=== PATIENT | male | born 1935 | race Asian ===

== ENCOUNTER 2017-08-14 15:52 | Inpatient (IN) | payer MEDICARE, OTHER ==
[~2017-08-14] VITALS: Ht 154.9 cm; Wt 79.8 kg
--- NOTE | 2017-08-14 15:52 | NUR ---
BIB FAMILY FOR [facility]YCH ADMISSION,INCREASING AGITATION/AGGRESSION TOWARDS STAFF/ROOMMATE X 1 WEEK
[2017-08-14 16:37] LABS: BASOPHILS # (AUTO) 0.1 /CMM (0.0-0.2); BASOPHILS % (AUTO) 0.7 % (0.0-2.0); EOSINOPHILS # (AUTO) 0.3 /CMM (0.0-0.7); EOSINOPHILS % (AUTO) 3.5 % (0.0-6.0); HEMATOCRIT 40 % (39-51); HEMOGLOBIN 12.8 g/dL (13.5-17.5); LYMPHOCYTES # (AUTO) 1.2 /CMM (0.8-4.8); LYMPHOCYTES % (AUTO) 16.5 % (20.0-44.0); MEAN CORPUSCULAR HEMOGLOBIN 27 PG (26.0-33.0); MEAN CORPUSCULAR HGB CONC 32 g/dl (31.0-36.0); MEAN CORPUSCULAR VOLUME 84 fL (80-96); MONOCYTES # (AUTO) 0.6 /CMM (0.1-1.30); MONOCYTES % (AUTO) 8.3 % (2.0-12.0); NEUTROPHILS # (AUTO) 5.4 /CMM (1.8-8.9); PLATELET COUNT (AUTO) 171 /CMM (150-450); RDW COEFFICIENT OF VARIATION 14.9 (11.5-15.0); RED BLOOD CELL COUNT(AUTO) 4.74 MIL/uL (4.5-6.0); WHITE BLOOD COUNT (AUTO) 7.6 K/uL (4.3-11.0)
--- NOTE | 2017-08-14 16:40 | NUR ---
URINE OBTAINED AND SENT TO LAB.
--- NOTE | 2017-08-14 16:47 | NUR ---
PT BACK FROM CT
[2017-08-14 16:58] LABS: CALCIUM, SERUM 9.3 mg/dL (8.5-10.1); CARBON DIOXIDE 30 mmol/L (21-32); CHLORIDE 109 mmol/L (98-107); GLUCOSE 92 mg/dL (74-106); POTASSIUM 4.2 mmol/L (3.5-5.1); SODIUM SERUM 145 mmol/L (136-145); UREA NITROGEN, BLOOD 23 mg/dL (7-18)
[2017-08-14 17:09] LABS: ACETAMINOPHEN < 2 ug/ml (10-30); ALANINE AMINOTRANSFERASE 27 U/L (12-78); ALBUMIN 3.5 g/dL (3.4-5.0); ALCOHOL, BLOOD < 3 mg/dL (0-0); ALKALINE PHOSPHATASE 75 U/L (46-116); ASPARTATE AMINOTRANSFERASE 34 U/L (15-37); BILIRUBIN,DIRECT 0.1 mg/dL (0.0-0.2); BILIRUBIN,TOTAL 0.3 mg/dL (0.2-1.0); SALICYLATE 0.7 mg/dL (2.8-20.0); TOTAL PROTEIN, SERUM 7.3 g/dL (6.4-8.2)
[2017-08-14 17:14] LABS: APPEARANCE,URINE Clear (CLEAR); BILIRUBIN,URINE Negative (NEGATIVE); BLOOD, URINE Negative Ery/uL (NEGATIVE); COLOR,URINE Yellow (YELLOW); KETONES,URINE Negative (NEGATIVE); LEUKOCYTE ESTERASE ,URINE Negative (NEGATIVE); NITRITE, URINE Negative (NEGATIVE); PH,URINE 5.5 (5.0-8.0); PROTEIN,URINE Negative (NEGATIVE); UGLUCOSE Negative (NEGATIVE); UROBILINOGEN,URINE 0.2 EU/dL (0.2)
--- NOTE | 2017-08-14 17:18 | NUR ---
PAULINA WILL BE HERE AT 1800 FOR PSYCH EVAL
--- NOTE | 2017-08-14 17:30 | NUR ---
PATIENT ASSIGNED TO [id number]
[2017-08-14] MEDS ORDERED: LORA0.5T PO (17:57)
[2017-08-14] MEDS ORDERED: DONE5TAB34 PO (17:57)
[2017-08-14] MEDS ORDERED: DIVA250T47 PO (17:57)
[2017-08-14] MEDS ORDERED: ALLO300T2 PO (17:57)
[2017-08-14] MEDS ORDERED: COLC0.6C3 PO (17:57)
[2017-08-14] MEDS ORDERED: METO-302 PO (17:57)
[2017-08-14] MEDS ORDERED: DOCU-270 PO (17:57)
[2017-08-14] MEDS ORDERED: MAG30ORA PO (17:57)
[2017-08-14] MEDS ORDERED: ASEN5TAB7 SL (17:57)
[2017-08-14] MEDS ORDERED: TEMA30CA PO (17:57)
[2017-08-14] MEDS ORDERED: TAMS-12 PO (17:57)
[2017-08-14] MEDS ORDERED: SENN1TAB9 PO (17:57)
[2017-08-14] MEDS ORDERED: ACET325T80 PO (17:57)
[2017-08-14] MEDS ORDERED: BENZ0.5T3 PO (17:57)
--- NOTE | 2017-08-14 18:00 | NUR ---
SENIOR ANIMAL TRAINER, PINKY AT BEDSIDE FOR EVAL
--- NOTE | 2017-08-14 18:31 | NUR ---
REPORT GIVEN TO AARON HERNANDEZ FOR ADMISSION TO GPS.
--- NOTE | 2017-08-14 18:38 | NUR ---
PATIENT TRANSPORTED TO [facility] VIA STRETCHER WITH EMT. RNAARON TO PROVIDE SHOAIB.
[2017-08-14] MEDS ORDERED: MAGNESIUM HYDROXIDE 30 ML UDC PO PRN (20:00)
[2017-08-14] MEDS ORDERED: MAG HYDROX/AL HYDROX/SIMETH 30 ML UDC PO PRN ×2 (20:00→21:00)
[2017-08-14] MEDS ORDERED: ACETAMINOPHEN 325 MG TABLET PO PRN (21:00)
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
[2017-08-14] MEDS: TAMSULOSIN 0.4 MG CAP.SR.24H PO SCH (22:13)
[2017-08-14] MEDS: LORAZEPAM 0.5 MG TABLET PO PRN (22:13)
[2017-08-14] MEDS: SENNOSIDES/DOCUSATE SODIUM 1 TAB TABLET PO SCH (22:13)
[2017-08-15 00:33] VITALS: BP 147/82
[2017-08-15 07:19] LABS: BASOPHILS % (AUTO) 0.3 % (0.0-2.0); EOSINOPHILS # (AUTO) 0.2 /CMM (0.0-0.7); EOSINOPHILS % (AUTO) 2.3 % (0.0-6.0); HEMATOCRIT 42 % (39-51); HEMOGLOBIN 13.4 g/dL (13.5-17.5); LYMPHOCYTES # (AUTO) 1.3 /CMM (0.8-4.8); LYMPHOCYTES % (AUTO) 14.8 % (20.0-44.0); MEAN CORPUSCULAR HEMOGLOBIN 28 PG (26.0-33.0); MEAN CORPUSCULAR HGB CONC 32 g/dl (31.0-36.0); MEAN CORPUSCULAR VOLUME 85 fL (80-96); MONOCYTES # (AUTO) 0.8 /CMM (0.1-1.30); MONOCYTES % (AUTO) 8.7 % (2.0-12.0); NEUTROPHILS # (AUTO) 6.7 /CMM (1.8-8.9); NEUTROPHILS % (AUTO) 73.9 % (43.0-81.0); PLATELET COUNT (AUTO) 163 /CMM (150-450); RDW COEFFICIENT OF VARIATION 15.3 (11.5-15.0); RED BLOOD CELL COUNT(AUTO) 4.88 MIL/uL (4.5-6.0)
[2017-08-15 07:41] LABS: CHOLESTEROL 174 mg/dL (<200); HDL CHOLESTEROL 57 mg/dL (40-60); LDL 106 mg/dL (0-99); TRIGLYCERIDES 76 mg/dL (30-150)
[2017-08-15 07:48] LABS: ALANINE AMINOTRANSFERASE 30 U/L (12-78); ALBUMIN 3.8 g/dL (3.4-5.0); ALKALINE PHOSPHATASE 68 U/L (46-116); ASPARTATE AMINOTRANSFERASE 32 U/L (15-37); BILIRUBIN,TOTAL 0.6 mg/dL (0.2-1.0); CALCIUM, SERUM 10.2 mg/dL (8.5-10.1); CARBON DIOXIDE 26 mmol/L (21-32); CHLORIDE 106 mmol/L (98-107); CREATININE 0.9 mg/dL (0.6-1.3); GLUCOSE 104 mg/dL (74-106); POTASSIUM 3.7 mmol/L (3.5-5.1); SODIUM SERUM 143 mmol/L (136-145); TOTAL PROTEIN, SERUM 7.9 g/dL (6.4-8.2); UREA NITROGEN, BLOOD 20 mg/dL (7-18)
[2017-08-15 08:00] VITALS: BP 137/82
[2017-08-15] MEDS: ALLOPURINOL 100 MG TABLET PO SCH (10:22)
[2017-08-15] MEDS: DONEPEZIL 5 MG TABLET PO SCH (10:23)
[2017-08-15] MEDS: Z GUARD REMEDY 2 OZ OINT TP SCH (10:23)
[2017-08-15] MEDS: DOCUSATE SODIUM 100 MG CAPSULE PO SCH ×2 (10:23→17:47)
[2017-08-15] MEDS: METOPROLOL SUCCINATE 25 MG TAB.SR.24H PO SCH (10:23)
[2017-08-15] MEDS: COLCHICINE 0.6 MG TABLET PO SCH ×2 (10:23→10:30)
[2017-08-15 16:00] VITALS: BP 120/79
[2017-08-15 20:00] VITALS: BP 137/92
[2017-08-15] MEDS ORDERED: DIVALPROEX SODIUM 250 MG TABLET.DR PO ONE (21:14)
[2017-08-15] MEDS: SENNOSIDES/DOCUSATE SODIUM 1 TAB TABLET PO SCH (21:26)
[2017-08-15] MEDS: TAMSULOSIN 0.4 MG CAP.SR.24H PO SCH (21:26)
[2017-08-15] MEDS: DIVALPROEX SODIUM 250 MG TABLET.DR PO SCH (21:26)
[2017-08-15] MEDS ORDERED: QUETIAPINE FUMARATE 25 MG TABLET PO SCH (22:00)
[2017-08-16 08:00] VITALS: BP 113/68
[2017-08-16] MEDS: DOCUSATE SODIUM 100 MG CAPSULE PO SCH ×2 (08:28→16:29)
[2017-08-16] MEDS: DONEPEZIL 5 MG TABLET PO SCH (08:28)
[2017-08-16] MEDS: COLCHICINE 0.6 MG TABLET PO SCH (08:29)
[2017-08-16] MEDS: METOPROLOL SUCCINATE 25 MG TAB.SR.24H PO SCH (08:30)
[2017-08-16] MEDS: ALLOPURINOL 100 MG TABLET PO SCH (08:30)
[2017-08-16] MEDS: Z GUARD REMEDY 2 OZ OINT TP SCH (08:31)
[2017-08-16] MEDS: DIVALPROEX SODIUM 250 MG TABLET.DR PO SCH ×2 (08:43→21:22)
[2017-08-16 16:00] VITALS: BP 103/66
[2017-08-16] MEDS: TAMSULOSIN 0.4 MG CAP.SR.24H PO SCH (21:22)
[2017-08-16] MEDS: SENNOSIDES/DOCUSATE SODIUM 1 TAB TABLET PO SCH (21:22)
[2017-08-16] MEDS: ARIPIPRAZOLE 5 MG TABLET PO SCH (21:22)
[2017-08-16 22:55] VITALS: BP 132/91
[2017-08-17 08:00] VITALS: BP 160/92
[2017-08-17] MEDS: DOCUSATE SODIUM 100 MG CAPSULE PO SCH ×2 (08:39→16:28)
[2017-08-17] MEDS: DIVALPROEX SODIUM 250 MG TABLET.DR PO SCH ×2 (08:39→22:01)
[2017-08-17] MEDS: DONEPEZIL 5 MG TABLET PO SCH (08:39)
[2017-08-17] MEDS: ALLOPURINOL 100 MG TABLET PO SCH (08:39)
[2017-08-17] MEDS: COLCHICINE 0.6 MG TABLET PO SCH (08:39)
[2017-08-17] MEDS: Z GUARD REMEDY 2 OZ OINT TP SCH (08:40)
[2017-08-17] MEDS: METOPROLOL SUCCINATE 25 MG TAB.SR.24H PO SCH (08:40)
--- NOTE | 2017-08-17 09:12 | NUR ---
GPS RN NOTES ASSISTED PATIENT BACK TO BED FROM SAFETY CHAIR
[2017-08-17 16:00] VITALS: BP 110/70
[2017-08-17 16:20] VITALS: BP 110/70
[2017-08-17 16:21] VITALS: BP_SYST 110; BP_SYST 129; BP_DIAS 56; BP_DIAS 70
--- NOTE | 2017-08-17 16:27 | NUR ---
Initial Discharge Note Patient lives at an [facility] [address] [place] [address] [place], [place] [address] and wishes to continue after discharge. SW contacted pt's daughter, Karina at [phone] and Karina stated that she would like her father to continue at [facility]. She stated that [facility] informed her that they would transfer patient to a private room when available. SW called [facility] and spoke to the 3yy game platform. SW was informed that an assessment would be conducted prior to accepting patient back. SW will follow up and schedule that assessment. SW will work to arrange safe and proper discharge and will provide resources for substance use centers.
--- NOTE | 2017-08-17 19:30 | NUR ---
GPS RN NOTE, RECEIVED PATIENT AWAKE AND IN BED NO S/S OR COMPLAINTS OF PAIN AT THIS TIME. PATIENT IS DISPLAYING NO S/S OF APPARENT DISTRESS AT THIS TIME. PATIENT BREATHING IS UNLABORED WITH EQUAL RISE AND FALL OF THE CHEST. PATIENT IS ALERT AND ORIENTED X1 ON ROOM AIR WITH A SPOO2 99 %. PATIENT IS MED COMPLIANT, CONFUSED, ANXIOUS, DISORGANIZED, AND NEEDS REORIENTATION. PATIENT DENIES SUICIDE IDEATIONS AND HOMICIDAL IDEATIONS AT THIS TIME. PATIENT ASSISTED WITH TURNING AND REPOSITIONING Q2HR AND PRN FOR COMFORT AND CIRCULATION. PATIENT HAS NO NEEDS AT THIS TIME. PATIENT EDUCATED ON THE USE OF THE CALL KINGSLEY. PATIENT BED SIDE RAILS UP X 2 FOR SAFETY. PATIENT BED IS LOCKED AND LOW WILL CONTINUE TO MONITOR AND MAINTAIN SAFETY Q15 MIN WITH THE HELP OF STAFF.
[2017-08-17 20:05] VITALS: BP 128/69
[2017-08-17] MEDS: TAMSULOSIN 0.4 MG CAP.SR.24H PO SCH (22:01)
[2017-08-17] MEDS: SENNOSIDES/DOCUSATE SODIUM 1 TAB TABLET PO SCH (22:01)
[2017-08-17] MEDS: ARIPIPRAZOLE 5 MG TABLET PO SCH (22:01)
[2017-08-18] MEDS: TEMAZEPAM 7.5 MG CAPSULE PO PRN (01:06)
--- NOTE | 2017-08-18 01:07 | NUR ---
GPS RN NOTE, PATIENT HAS A COMPLAINT OF NOT BEING ABLE TO SLEEP AND IS REQUEST A SLEEPING PILL AT THIS TIME. PATIENT VITAL SIGNS ARE STABLE. GAVE RESTORIL 7.5MG PO HS ORDERED. WILL REASSESS FOR INSOMNIA AND I WILL CONTINUE TO MONITOR THIS PATIENT.
[2017-08-18 08:00] VITALS: BP 107/56
[2017-08-18] MEDS: METOPROLOL SUCCINATE 25 MG TAB.SR.24H PO SCH (09:00)
[2017-08-18] MEDS: DONEPEZIL 5 MG TABLET PO SCH (09:05)
[2017-08-18] MEDS: COLCHICINE 0.6 MG TABLET PO SCH (09:05)
[2017-08-18] MEDS: DOCUSATE SODIUM 100 MG CAPSULE PO SCH ×2 (09:05→17:57)
[2017-08-18] MEDS: ALLOPURINOL 100 MG TABLET PO SCH (09:05)
[2017-08-18] MEDS: DIVALPROEX SODIUM 250 MG TABLET.DR PO SCH ×2 (09:06→20:15)
[2017-08-18] MEDS: Z GUARD REMEDY 2 OZ OINT TP SCH (09:07)
--- NOTE | 2017-08-18 09:07 | NUR ---
RN NON ADMIN NOTES PATIENT BP 107/56 HR 68. MED HELD.
--- NOTE | 2017-08-18 09:49 | NUR ---
AYSE called [facility] [address] [place] [address] and spoke with executive compensation analyst Kristina who stated that Dudley, the nursing informatics analyst was in a meeting. AYSE left a message for Dudley regarding assessing patient. AYSE will follow up.
--- NOTE | 2017-08-18 10:16 | NUR ---
WOUND CARE CONSULT: PT PRESENTS WITH STAGE 2 ULCER TO SACRUM, PRESENT ON ADMISSION. PT IS INCONTINENT. DISCUSSED WOUND CARE RECOMMENDATIONS AND SKIN PROTECTION WITH NURSING STAFF INCLUDING LIMITING AMOUNT OF TIME PATIENT IS SITTING. SKIN TO BE KEPT CLEAN AND DRY. CURRENT NAVARRO SCORE IS 19. WILL SEE PRN. EDWARDS IN AGREEMENT WITH PLAN OF CARE. Addendum: 08/18/17 at 1018 by BOB MILLS WNDNU Amended: Links added.
[2017-08-18] MEDS ORDERED: HYDROGEL DRESSING 90 GM TUBE TP PRN (10:30)
[2017-08-18] MEDS: ARIPIPRAZOLE 5 MG TABLET PO SCH ×2 (12:00→17:58)
--- NOTE | 2017-08-18 14:00 | NUR ---
AYSE called [facility] [id number] [place], [place] [id number] and spoke directly with Dudley. Dudley stated that she is open to assessing patient but does not have free time today or tomorrow [Thursday, 08/19]. Dudley stated that she can see patient on 08/20 at 10am. AYSE asked Dudley if she would like clinicals faxed over and Dudley stated that she would and provide her fax number: [phone].
--- NOTE | 2017-08-18 14:32 | NUR ---
AYSE faxed over clinicals / progress notes to Dudley from [facility] to fax number [phone]
[2017-08-18 15:38] VITALS: BP 137/81
[2017-08-18] MEDS ORDERED: ARIPIPRAZOLE 5 MG TABLET PO SCH (17:00)
[2017-08-18] MEDS: HYDROGEL DRESSING 90 GM TUBE TP SCH (17:57)
[2017-08-18 19:58] VITALS: BP 136/83
[2017-08-18] MEDS: LORAZEPAM 0.5 MG TABLET PO PRN (20:15)
--- NOTE | 2017-08-18 20:18 | NUR ---
GPS/RN NOTE: PATIENT IS LABILE, AGITATED. ATIVAN 0.5 MG TAB PO GIVEN.
[2017-08-18] MEDS: TAMSULOSIN 0.4 MG CAP.SR.24H PO SCH (21:39)
[2017-08-18] MEDS: SENNOSIDES/DOCUSATE SODIUM 1 TAB TABLET PO SCH (21:40)
[2017-08-19] MEDS: TEMAZEPAM 7.5 MG CAPSULE PO PRN ×2 (01:53→21:16)
--- NOTE | 2017-08-19 01:54 | NUR ---
GPS/RN NOTE: PATIENT STILL NOT SLEEPING, TEMAZEPAM 7.5 MG PO GIVEN.
[2017-08-19 08:00] VITALS: BP 100/57
[2017-08-19] MEDS: COLCHICINE 0.6 MG TABLET PO SCH (08:43)
[2017-08-19] MEDS: ARIPIPRAZOLE 5 MG TABLET PO SCH ×2 (08:43→17:07)
[2017-08-19] MEDS: DOCUSATE SODIUM 100 MG CAPSULE PO SCH ×2 (08:43→17:06)
[2017-08-19] MEDS: DIVALPROEX SODIUM 250 MG TABLET.DR PO SCH ×2 (08:43→21:15)
[2017-08-19] MEDS: METOPROLOL SUCCINATE 25 MG TAB.SR.24H PO SCH (08:44)
[2017-08-19] MEDS: DONEPEZIL 5 MG TABLET PO SCH (08:45)
[2017-08-19] MEDS: Z GUARD REMEDY 2 OZ OINT TP SCH (08:52)
[2017-08-19] MEDS: HYDROGEL DRESSING 90 GM TUBE TP SCH (08:53)
[2017-08-19] MEDS: ALLOPURINOL 100 MG TABLET PO SCH (09:52)
--- NOTE | 2017-08-19 10:36 | NUR ---
GPS/RN TURNED AND REPOSITIONED Q 2 HOURS, WOUND CARE RENDERED ORDERED, WILL CONTINUE TO MONITOR.
[2017-08-19 16:00] VITALS: BP 116/62
[2017-08-19 20:00] VITALS: BP 148/86
[2017-08-19] MEDS: SENNOSIDES/DOCUSATE SODIUM 1 TAB TABLET PO SCH (21:15)
[2017-08-19] MEDS: TAMSULOSIN 0.4 MG CAP.SR.24H PO SCH (21:15)
[2017-08-20 08:00] VITALS: BP 130/70
[2017-08-20] MEDS: DIVALPROEX SODIUM 250 MG TABLET.DR PO SCH ×2 (08:23→21:29)
[2017-08-20] MEDS: DOCUSATE SODIUM 100 MG CAPSULE PO SCH ×2 (08:23→16:06)
[2017-08-20] MEDS: MULTIVITAMINS,THERAGRAN 1 UDTAB TABLET PO SCH (08:23)
[2017-08-20] MEDS: ARIPIPRAZOLE 2 MG TABLET PO SCH (08:24)
[2017-08-20] MEDS: DONEPEZIL 5 MG TABLET PO SCH (08:24)
[2017-08-20] MEDS: COLCHICINE 0.6 MG TABLET PO SCH (08:25)
[2017-08-20] MEDS: ALLOPURINOL 100 MG TABLET PO SCH (08:28)
[2017-08-20] MEDS: ASCORBIC ACID 500 MG TABLET PO SCH (08:28)
[2017-08-20] MEDS: METOPROLOL SUCCINATE 25 MG TAB.SR.24H PO SCH (08:28)
[2017-08-20] MEDS: Z GUARD REMEDY 2 OZ OINT TP SCH (08:29)
[2017-08-20] MEDS: HYDROGEL DRESSING 90 GM TUBE TP SCH (08:29)
[2017-08-20] MEDS ORDERED: ARIPIPRAZOLE 5 MG TABLET PO SCH (09:00)
--- NOTE | 2017-08-20 11:02 | NUR ---
AYSE received a voicemail from Alfreda from [facility]. Alfreda stated that, upon closer review of medication, the facility realizes that no changes were made. Alfreda stated that this has been a problem in the past and - for this reason - the facility will not be assessing patient today. AYSE will follow up with Dr. Gómez.
--- NOTE | 2017-08-20 11:03 | NUR ---
AYSE faxed over inquiry to Sandra from [facility]; [address], [place] [address], .
--- NOTE | 2017-08-20 12:51 | NUR ---
AYSE heard back from Consuleo from [facility]; [address] , [place] [address], who stated that she will assess patient tomorrow morning.
[2017-08-20 15:56] VITALS: BP 132/81
[2017-08-20 20:00] VITALS: BP 145/47
[2017-08-20] MEDS: SENNOSIDES/DOCUSATE SODIUM 1 TAB TABLET PO SCH (21:29)
[2017-08-20] MEDS: ARIPIPRAZOLE 5 MG TABLET PO SCH (21:29)
[2017-08-20] MEDS: TAMSULOSIN 0.4 MG CAP.SR.24H PO SCH (21:29)
[2017-08-20] MEDS: TEMAZEPAM 7.5 MG CAPSULE PO PRN (21:30)
[2017-08-21] MEDS: LORAZEPAM 0.5 MG TABLET PO PRN ×4 (01:15→21:08)
[2017-08-21 08:00] VITALS: BP 118/60
--- NOTE | 2017-08-21 08:00 | NUR ---
GPS RN AM NOTES RECEIVED PATIENT AWAKE AND IN BED WITH COMPLAINTS OF BACK PAIN AT THIS TIME.WILL DO PAIN MGT WITH TYLENOL PRN.PATIENT IS DISPLAYING NO S/S OF APPARENT DISTRESS AT THIS TIME. PATIENT BREATHING IS UNLABORED WITH EQUAL RISE AND FALL OF THE CHEST. PATIENT IS ALERT AND ORIENTED X1 ON ROOM AIR WITH A SPO2 99 %. PATIENT IS MED COMPLIANT, CONFUSED, ANXIOUS, DISORGANIZED, AND NEEDS REORIENTATION. PATIENT DENIES SUICIDE IDEATIONS AND HOMICIDAL IDEATIONS AT THIS TIME. PATIENT ASSISTED WITH TURNING AND REPOSITIONING Q2HR AND PRN FOR COMFORT AND CIRCULATION. PATIENT HAS NO NEEDS AT THIS TIME. PATIENT EDUCATED ON THE USE OF THE CALL KINGSLEY. PATIENT BED SIDE RAILS UP X 2 FOR SAFETY. PATIENT BED IS LOCKED AND LOW WILL CONTINUE TO MONITOR AND MAINTAIN SAFETY Q15 MIN WITH THE HELP OF STAFF.
[2017-08-21] MEDS: DOCUSATE SODIUM 100 MG CAPSULE PO SCH ×2 (08:48→16:32)
[2017-08-21] MEDS: DIVALPROEX SODIUM 250 MG TABLET.DR PO SCH ×2 (08:48→21:08)
[2017-08-21] MEDS: ACETAMINOPHEN 325 MG TABLET PO PRN ×2 (08:48→16:32)
[2017-08-21] MEDS: ASCORBIC ACID 500 MG TABLET PO SCH (08:48)
[2017-08-21] MEDS: DONEPEZIL 5 MG TABLET PO SCH (08:49)
[2017-08-21] MEDS: ALLOPURINOL 100 MG TABLET PO SCH (08:49)
[2017-08-21] MEDS: MULTIVITAMINS,THERAGRAN 1 UDTAB TABLET PO SCH (08:49)
[2017-08-21] MEDS: METOPROLOL SUCCINATE 25 MG TAB.SR.24H PO SCH (08:49)
[2017-08-21] MEDS: COLCHICINE 0.6 MG TABLET PO SCH (08:49)
[2017-08-21] MEDS: Z GUARD REMEDY 2 OZ OINT TP SCH (08:53)
[2017-08-21] MEDS: ARIPIPRAZOLE 2 MG TABLET PO SCH (08:53)
[2017-08-21] MEDS: HYDROGEL DRESSING 90 GM TUBE TP SCH (08:53)
[2017-08-21 16:00] VITALS: BP 114/60
[2017-08-21 20:00] VITALS: BP 116/94
[2017-08-21] MEDS: ARIPIPRAZOLE 5 MG TABLET PO SCH (21:08)
[2017-08-21] MEDS: TAMSULOSIN 0.4 MG CAP.SR.24H PO SCH (21:08)
[2017-08-21] MEDS: SENNOSIDES/DOCUSATE SODIUM 1 TAB TABLET PO SCH (21:08)
[2017-08-21] MEDS: TEMAZEPAM 7.5 MG CAPSULE PO PRN (22:03)
[2017-08-22 08:00] VITALS: BP 108/54
[2017-08-22] MEDS: METOPROLOL SUCCINATE 25 MG TAB.SR.24H PO SCH (09:00)
[2017-08-22] MEDS: MULTIVITAMINS,THERAGRAN 1 UDTAB TABLET PO SCH (09:49)
[2017-08-22] MEDS: DIVALPROEX SODIUM 250 MG TABLET.DR PO SCH ×2 (09:49→21:09)
[2017-08-22] MEDS: DOCUSATE SODIUM 100 MG CAPSULE PO SCH ×2 (09:49→17:12)
[2017-08-22] MEDS: ARIPIPRAZOLE 2 MG TABLET PO SCH (09:49)
[2017-08-22] MEDS: ASCORBIC ACID 500 MG TABLET PO SCH (09:49)
[2017-08-22] MEDS: ALLOPURINOL 100 MG TABLET PO SCH (09:50)
[2017-08-22] MEDS: COLCHICINE 0.6 MG TABLET PO SCH (09:50)
[2017-08-22] MEDS: Z GUARD REMEDY 2 OZ OINT TP SCH (09:51)
[2017-08-22] MEDS: DONEPEZIL 5 MG TABLET PO SCH (09:52)
[2017-08-22] MEDS: HYDROGEL DRESSING 90 GM TUBE TP SCH (11:00)
[2017-08-22 16:07] VITALS: BP 139/96
[2017-08-22 20:00] VITALS: BP 111/62
[2017-08-22] MEDS: ARIPIPRAZOLE 5 MG TABLET PO SCH (20:18)
[2017-08-22] MEDS: TAMSULOSIN 0.4 MG CAP.SR.24H PO SCH (21:09)
[2017-08-22] MEDS: SENNOSIDES/DOCUSATE SODIUM 1 TAB TABLET PO SCH (21:10)
[2017-08-22] MEDS: TEMAZEPAM 7.5 MG CAPSULE PO PRN (23:15)
--- NOTE | 2017-08-23 06:51 | NUR ---
RN GPS NOTES REMAINED 1:1 SITTER AT BED SIDE FOR PT. SAFETY , NO ACUTE DISTRESS NOTED, WILL ENDORSE TO NEXT SHIFT FOR CONTINUITY OF CARE .
[2017-08-23 08:00] VITALS: BP 137/79
[2017-08-23] MEDS: DONEPEZIL 5 MG TABLET PO SCH (08:34)
[2017-08-23] MEDS: ARIPIPRAZOLE 2 MG TABLET PO SCH (08:34)
[2017-08-23] MEDS: METOPROLOL SUCCINATE 25 MG TAB.SR.24H PO SCH (08:34)
[2017-08-23] MEDS: COLCHICINE 0.6 MG TABLET PO SCH (08:35)
[2017-08-23] MEDS: DOCUSATE SODIUM 100 MG CAPSULE PO SCH ×2 (08:35→17:02)
[2017-08-23] MEDS: ALLOPURINOL 100 MG TABLET PO SCH (08:35)
[2017-08-23] MEDS: ASCORBIC ACID 500 MG TABLET PO SCH (08:36)
[2017-08-23] MEDS: MULTIVITAMINS,THERAGRAN 1 UDTAB TABLET PO SCH (08:36)
[2017-08-23] MEDS: DIVALPROEX SODIUM 250 MG TABLET.DR PO SCH ×2 (08:37→20:55)
[2017-08-23] MEDS: Z GUARD REMEDY 2 OZ OINT TP SCH (08:39)
[2017-08-23] MEDS: HYDROGEL DRESSING 90 GM TUBE TP SCH (08:40)
[2017-08-23 15:21] VITALS: BP 138/82
[2017-08-23 20:10] VITALS: BP 102/55
[2017-08-23] MEDS: ARIPIPRAZOLE 5 MG TABLET PO SCH (20:55)
[2017-08-23] MEDS: SENNOSIDES/DOCUSATE SODIUM 1 TAB TABLET PO SCH (21:09)
[2017-08-23] MEDS: TAMSULOSIN 0.4 MG CAP.SR.24H PO SCH (21:09)
[2017-08-23] MEDS: TEMAZEPAM 7.5 MG CAPSULE PO PRN (22:43)
[2017-08-24 08:00] VITALS: BP 115/73
[2017-08-24] MEDS: DIVALPROEX SODIUM 250 MG TABLET.DR PO SCH ×2 (08:19→21:00)
[2017-08-24] MEDS: ALLOPURINOL 100 MG TABLET PO SCH (08:19)
[2017-08-24] MEDS: DONEPEZIL 5 MG TABLET PO SCH (08:19)
[2017-08-24] MEDS: DOCUSATE SODIUM 100 MG CAPSULE PO SCH ×2 (08:19→16:49)
[2017-08-24] MEDS: MULTIVITAMINS,THERAGRAN 1 UDTAB TABLET PO SCH (08:20)
[2017-08-24] MEDS: ARIPIPRAZOLE 2 MG TABLET PO SCH (08:20)
[2017-08-24] MEDS: COLCHICINE 0.6 MG TABLET PO SCH (08:20)
[2017-08-24] MEDS: METOPROLOL SUCCINATE 25 MG TAB.SR.24H PO SCH (08:20)
[2017-08-24] MEDS: ASCORBIC ACID 500 MG TABLET PO SCH (08:20)
[2017-08-24] MEDS: Z GUARD REMEDY 2 OZ OINT TP SCH (08:26)
[2017-08-24] MEDS: HYDROGEL DRESSING 90 GM TUBE TP SCH (08:26)
--- NOTE | 2017-08-24 08:34 | NUR ---
On 08/21/17 Consuelo assessed patient and stated that he was accepted to the facility. On 08/23/17 AYSE faxed over progress notes to [facility]; [address] [place] [address], .
--- NOTE | 2017-08-24 09:00 | NUR ---
GPS/CLOTH COVERED HELMET PULLER RENDERED ORDERED, TURNED AND REPOSITIONED Q 2 HOURS.
--- NOTE | 2017-08-24 12:22 | NUR ---
AYSE heard back from Sandra from [facility] who stated that there is an issue accepting the patient because he is on a one-to-one basis. AYSE explained that it was due to wound care and that patient has to be rotated every couple hours. AYSE faxed over wound assessment notes. Sandra stated that the patient has to be off 1:1 for 48 hours prior to acceptance AYSE faxed over an inquiry to [address] [address] , fax number: [phone] AYSE attempted to call patient's daughter, Karina to give her an update to placement issues, but was unable to reach her. AYSE left a voicemail with contact information. If [facility] does not accept patient, AYSE will call pt's assisted living and arrange for assessment. The issue that the assisted living had was that they did not see any medication changes. However, that was not the case. If patient were to return to assisted living, home health services will be arranged. AYSE to follow up on 08/25/17.
[2017-08-24 16:32] VITALS: BP 122/64
--- NOTE | 2017-08-24 18:02 | NUR ---
GPS/RN TURNED AND REPOSITIONED Q 2 HOURS THROUGHOUT SHIFT.
[2017-08-24] MEDS: LORAZEPAM 0.5 MG TABLET PO PRN (20:12)
[2017-08-24] MEDS: ARIPIPRAZOLE 5 MG TABLET PO SCH (20:15)
[2017-08-24 20:36] VITALS: BP 115/64
[2017-08-24] MEDS: TAMSULOSIN 0.4 MG CAP.SR.24H PO SCH (21:19)
[2017-08-24] MEDS: SENNOSIDES/DOCUSATE SODIUM 1 TAB TABLET PO SCH (21:19)
[2017-08-24] MEDS: TEMAZEPAM 7.5 MG CAPSULE PO PRN (22:14)
[2017-08-25] MEDS: LORAZEPAM 0.5 MG TABLET PO PRN (03:06)
[2017-08-25] MEDS: METOPROLOL SUCCINATE 25 MG TAB.SR.24H PO SCH (09:00)
[2017-08-25] MEDS: ALLOPURINOL 100 MG TABLET PO SCH (09:08)
[2017-08-25] MEDS: ARIPIPRAZOLE 2 MG TABLET PO SCH ×2 (09:09→14:14)
[2017-08-25] MEDS: COLCHICINE 0.6 MG TABLET PO SCH (09:09)
[2017-08-25] MEDS: DONEPEZIL 5 MG TABLET PO SCH (09:09)
[2017-08-25] MEDS: MULTIVITAMINS,THERAGRAN 1 UDTAB TABLET PO SCH (09:10)
[2017-08-25] MEDS: DIVALPROEX SODIUM 250 MG TABLET.DR PO SCH (09:10)
[2017-08-25] MEDS: DOCUSATE SODIUM 100 MG CAPSULE PO SCH ×2 (09:10→17:37)
[2017-08-25] MEDS: ASCORBIC ACID 500 MG TABLET PO SCH (09:10)
[2017-08-25] MEDS: Z GUARD REMEDY 2 OZ OINT TP SCH (09:56)
[2017-08-25] MEDS: HYDROGEL DRESSING 90 GM TUBE TP SCH (09:56)
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
--- NOTE | 2017-08-25 09:59 | NUR ---
AYSE faxed inquiries to: [facility]: / fax number [phone] [facility] fax number [phone] [address] [facility] in [place] : [phone] / fax #[phone] [facility] [phone] / fax #[phone] AYSE will follow up in a couple hours.
--- NOTE | 2017-08-25 11:13 | NUR ---
AYSE heard from Guillermo from [facility]: / fax number [phone], who stated that the patient was accepted into the facility. AYSE consulted with 's psychiatrist, Dr. Gómez, who stated that she feels uneasy about discharging patient today/tomorrow and would like to hold discharge for now.
--- NOTE | 2017-08-25 11:20 | NUR ---
AYSE heard back from Robert from [facility] fax number [phone] [address] [facility] who stated that the facility will not be accepting patient.
[2017-08-25] MEDS: DIVALPROEX SODIUM 125 MG CAP.SPRINK PO SCH ×2 (14:14→17:37)
--- NOTE | 2017-08-25 14:55 | NUR ---
AYSE heard back from Sofi from [facility] in [place] : [phone] / fax #[phone]. Sofi stated that the patient has been accepted, but they would like to assess him tomorrow morning. AYSE stated that it was fine to do so and made the arrangements.
[2017-08-25 16:04] VITALS: BP 106/60
[2017-08-25 20:42] VITALS: BP 129/76
[2017-08-25] MEDS: ARIPIPRAZOLE 5 MG TABLET PO SCH (20:51)
[2017-08-25] MEDS: SENNOSIDES/DOCUSATE SODIUM 1 TAB TABLET PO SCH (21:16)
[2017-08-25] MEDS: TAMSULOSIN 0.4 MG CAP.SR.24H PO SCH (21:16)
[2017-08-25] MEDS: TEMAZEPAM 7.5 MG CAPSULE PO PRN (22:45)
[2017-08-26] MEDS: ARIPIPRAZOLE 2 MG TABLET PO SCH ×2 (07:56→12:36)
[2017-08-26 08:00] VITALS: BP 124/67
[2017-08-26] MEDS: COLCHICINE 0.6 MG TABLET PO SCH (08:55)
[2017-08-26] MEDS: ASCORBIC ACID 500 MG TABLET PO SCH (08:56)
[2017-08-26] MEDS: DOCUSATE SODIUM 100 MG CAPSULE PO SCH ×2 (08:56→16:25)
[2017-08-26] MEDS: DIVALPROEX SODIUM 125 MG CAP.SPRINK PO SCH ×3 (08:56→16:25)
[2017-08-26] MEDS: ALLOPURINOL 100 MG TABLET PO SCH (08:56)
[2017-08-26] MEDS: MULTIVITAMINS,THERAGRAN 1 UDTAB TABLET PO SCH (08:57)
[2017-08-26] MEDS: DONEPEZIL 5 MG TABLET PO SCH (08:57)
[2017-08-26] MEDS: METOPROLOL SUCCINATE 25 MG TAB.SR.24H PO SCH (08:57)
[2017-08-26] MEDS: Z GUARD REMEDY 2 OZ OINT TP SCH (08:58)
[2017-08-26] MEDS: HYDROGEL DRESSING 90 GM TUBE TP SCH (09:00)
[2017-08-26 16:33] VITALS: BP 126/69
--- NOTE | 2017-08-26 19:30 | NUR ---
GPS RN NOTE, RECEIVED PATIENT AWAKE AND IN BED NO S/S OR COMPLAINTS OF PAIN AT THIS TIME. PATIENT IS DISPLAYING NO S/S OF APPARENT DISTRESS AT THIS TIME. PATIENT BREATHING IS UNLABORED WITH EQUAL RISE AND FALL OF THE CHEST. PATIENT IS ALERT AND ORIENTED X1 ON ROOM AIR WITH A SPOO2 95%. PATIENT IS MED COMPLIANT WHEN PILLS ARE CRUSHED, CONFUSED, ANXIOUS, DISORGANIZED, AND NEEDS REORIENTATION. PATIENT HAS ONE TO ONE SITTER FOR FALL. PATIENT DENIES SUICIDE IDEATIONS AND HOMICIDAL IDEATIONS AT THIS TIME. PATIENT ASSISTED WITH TURNING AND REPOSITIONING Q2HR AND PRN FOR COMFORT AND CIRCULATION. PATIENT HAS NO NEEDS AT THIS TIME. PATIENT EDUCATED ON THE USE OF THE CALL KINGSLEY. PATIENT BED SIDE RAILS UP X 2 FOR SAFETY. PATIENT BED IS LOCKED AND LOW WILL CONTINUE TO MONITOR AND MAINTAIN SAFETY Q15 MIN WITH THE HELP OF STAFF.
[2017-08-26 20:04] VITALS: BP 142/78
[2017-08-26] MEDS: ARIPIPRAZOLE 5 MG TABLET PO SCH (20:34)
[2017-08-26] MEDS: TEMAZEPAM 7.5 MG CAPSULE PO PRN (20:35)
--- NOTE | 2017-08-26 20:35 | NUR ---
GPS RN NOTE, PATIENT HAS A COMPLAINT OF NOT BEING ABLE TO SLEEP AND IS REQUESTING RESTORIL AT THIS TIME. PATIENT VITAL SIGNS ARE STABLE. GAVE RESTORIL 7.5MG PO HS ORDERED. WILL REASSESS FOR INSOMNIA AND I WILL CONTINUE TO MONITOR THIS PATIENT.
[2017-08-26] MEDS: SENNOSIDES/DOCUSATE SODIUM 1 TAB TABLET PO SCH (21:41)
[2017-08-26] MEDS: TAMSULOSIN 0.4 MG CAP.SR.24H PO SCH (21:41)
[2017-08-26] MEDS: LORAZEPAM 0.5 MG TABLET PO PRN (21:48)
--- NOTE | 2017-08-26 21:48 | NUR ---
GPS RN NOTE, PATIENT HAS A COMPLAINT OF FEELING ANXIOUS AND IS REQUESTING ATIVAN AT THIS TIME. PATIENT VITAL SIGNS ARE STABLE. GAVE ATIVAN 0.5MG PO Q6HR PRN ORDERED. WILL REASSESS FOR ANXIETY AND I WILL CONTINUE TO MONITOR THIS PATIENT.
[2017-08-27] MEDS: LORAZEPAM 0.5 MG TABLET PO PRN (05:03)
[2017-08-27 08:00] VITALS: BP 100/60
[2017-08-27] MEDS: COLCHICINE 0.6 MG TABLET PO SCH (08:48)
[2017-08-27] MEDS: DIVALPROEX SODIUM 125 MG CAP.SPRINK PO SCH ×2 (08:48→14:25)
[2017-08-27] MEDS: ASCORBIC ACID 500 MG TABLET PO SCH (08:49)
[2017-08-27] MEDS: DONEPEZIL 5 MG TABLET PO SCH (08:49)
[2017-08-27] MEDS: ALLOPURINOL 100 MG TABLET PO SCH (08:49)
[2017-08-27] MEDS: MULTIVITAMINS,THERAGRAN 1 UDTAB TABLET PO SCH (08:49)
[2017-08-27] MEDS: ARIPIPRAZOLE 2 MG TABLET PO SCH ×2 (08:49→14:25)
[2017-08-27] MEDS: DOCUSATE SODIUM 100 MG CAPSULE PO SCH (08:50)
[2017-08-27] MEDS: METOPROLOL SUCCINATE 25 MG TAB.SR.24H PO SCH (09:00)
--- NOTE | 2017-08-27 09:03 | NUR ---
RN NON ADMIN NOTES PATIENT BP 100/60 HR 82. HELD METROPLOL. WILL CONTINUE TO MONITOR.
[2017-08-27 09:22] LABS: BASOPHILS % (AUTO) 0.3 % (0.0-2.0); EOSINOPHILS # (AUTO) 0.3 /CMM (0.0-0.7); EOSINOPHILS % (AUTO) 3.7 % (0.0-6.0); HEMATOCRIT 42 % (39-51); HEMOGLOBIN 13.7 g/dL (13.5-17.5); LYMPHOCYTES # (AUTO) 1.9 /CMM (0.8-4.8); LYMPHOCYTES % (AUTO) 20.4 % (20.0-44.0); MEAN CORPUSCULAR HEMOGLOBIN 27 PG (26.0-33.0); MEAN CORPUSCULAR HGB CONC 32 g/dl (31.0-36.0); MEAN CORPUSCULAR VOLUME 84 fL (80-96); MONOCYTES # (AUTO) 0.6 /CMM (0.1-1.30); MONOCYTES % (AUTO) 6.1 % (2.0-12.0); NEUTROPHILS # (AUTO) 6.5 /CMM (1.8-8.9); NEUTROPHILS % (AUTO) 69.5 % (43.0-81.0); PLATELET COUNT (AUTO) 135 /CMM (150-450); RDW COEFFICIENT OF VARIATION 15.1 (11.5-15.0); RED BLOOD CELL COUNT(AUTO) 5.02 MIL/uL (4.5-6.0); WHITE BLOOD COUNT (AUTO) 9.3 K/uL (4.3-11.0)
[2017-08-27 09:44] LABS: CALCIUM, SERUM 10.1 mg/dL (8.5-10.1); CARBON DIOXIDE 29 mmol/L (21-32); CHLORIDE 102 mmol/L (98-107); GLUCOSE 168 mg/dL (74-106); POTASSIUM 3.5 mmol/L (3.5-5.1); SODIUM SERUM 139 mmol/L (136-145); UREA NITROGEN, BLOOD 17 mg/dL (7-18)
[2017-08-27 09:50] LABS: ALANINE AMINOTRANSFERASE 32 U/L (12-78); ALBUMIN 3.6 g/dL (3.4-5.0); ALKALINE PHOSPHATASE 81 U/L (46-116); ASPARTATE AMINOTRANSFERASE 26 U/L (15-37); BILIRUBIN,TOTAL 0.3 mg/dL (0.2-1.0); MAGNESIUM 2.1 mg/dL (1.8-2.4); TOTAL PROTEIN, SERUM 7.5 g/dL (6.4-8.2)
[2017-08-27 11:21] LABS: APPEARANCE,URINE CLEAR (CLEAR); BILIRUBIN,URINE NEGATIVE (NEGATIVE); BLOOD, URINE NEGATIVE Ery/uL (NEGATIVE); COLOR,URINE YELLOW (YELLOW); KETONES,URINE NEGATIVE (NEGATIVE); LEUKOCYTE ESTERASE ,URINE TRACE (NEGATIVE); NITRITE, URINE NEGATIVE (NEGATIVE); PROTEIN,URINE NEGATIVE (NEGATIVE); UGLUCOSE NEGATIVE (NEGATIVE); UROBILINOGEN,URINE 0.2 EU/dL (0.2)
[2017-08-27 11:57] LABS: RBC,URINE NONE SEEN /HPF (0-2)
[2017-08-27 11:58] LABS: BACTERIA,URINE Rare /HPF (None Seen); SQUAMOUS EPITHELIAL CELL,UR Few /HPF (None Seen); WBC,URINE 0-2 /HPF (0-3)
--- NOTE | 2017-08-27 12:26 | NUR ---
DR. BENNETT GAVE AN ORDER TO D/C HOLD AND D/C TO [facility]. PSYCHIATRIST MADE AWARE OF THE LAB RESULTS THAT SHE ORDERED. PT. WITHOUT DISTRESS, DENIES SUICIDAL AND HOMICIDAL AND TO FOLLOW UP WITH PSYCH AND MEDICAL DOCTORS. DR. BRICENO MADE AWARE OF THE DISCHARGE AND SAID OK FOR DISCHARGE AND SAID TO CONTINUE SAME MEDS INCLUDING PRN AND SHE REVIEWED THE LAB RESULTS.
[2017-08-27] MEDS: HYDROGEL DRESSING 90 GM TUBE TP SCH (14:28)
[2017-08-27] MEDS: Z GUARD REMEDY 2 OZ OINT TP SCH (14:28)
--- NOTE | 2017-08-27 14:28 | NUR ---
Discharge Note Patient will be discharged to [facility] [id number] [place] [address], via ambulance transportation arranged by social sciences professor. Patients daughter Karina [phone] and son Bryan [phone] are aware and are in agreement with the discharge plan. Patient will be seen by his prepper, Dr. Manolo Corral [address] [place] [address] on Thursday, 08/31 at 9;30am. Patient will be seen by his psychiatrist, Dr. Ebonie Thomas [address] [facility] [address] [place] [address] at the facility on 09/01 at 11:00am.
--- NOTE | 2017-08-27 15:45 | NUR ---
RN NOTES REPORT GIVEN TO MARY ZABALA AT [facility]. ALL EXITCARE GIVEN. ALL DOCUMENTATION SENT WITH EMT TO FACILITY.
== END 2017-08-27 15:35 | DRG 885 ==
LOC: ER 15:59 → GPS 18:14
PROVIDERS: ADMIT Specialist; ATTEND Psychiatry & Neurology Psychosomatic Medicine
DX: F29 Unspecified psychosis not due to a substance or known physiological condition (principal); F03.90 Unspecified dementia, unspecified severity, without behavioral disturbance, psychotic disturbance, mood disturbance, and anxiety; F20.9 Schizophrenia, unspecified; F41.9 Anxiety disorder, unspecified; I10 Essential (primary) hypertension; N40.0 Benign prostatic hyperplasia without lower urinary tract symptoms; M10.9 Gout, unspecified; Z73.6 Limitation of activities due to disability; F31.9 Bipolar disorder, unspecified; R79.89 Other specified abnormal findings of blood chemistry
CPT/HCPCS: 36415; 70450-TC; 80048-TC; 80053-TC; 80061-TC; 80076-TC; 80305; 81000-TC; 83735-TC; 85025-TC; 87081-TC; A4606; A6248; G0480; Z7610